=== PATIENT | male | born 1935 | race Caucasian/White ===

== ENCOUNTER 2016-11-15 08:56 | Day surgery (SDC) | payer MEDICARE, OTHER ==
[2016-11-09 09:53] LABS: ANION GAP 11 (5-19); BLOOD UREA NITROGEN 22 mg/dL (7-20); CALCIUM 8.7 mg/dL (8.4-10.2); CARBON DIOXIDE 25 mmol/L (22-30); CHLORIDE 106 mmol/L (98-107); CREATININE RESULT 1.93 mg/dL (0.52-1.25); GLUCOSE 106 mg/dL (75-110); POTASSIUM 4.9 mmol/L (3.6-5.0); SODIUM 141.6 mmol/L (137-145)
[2016-11-09 11:01] LABS: HEMATOCRIT 33.9 % (37.9-51.0); HEMOGLOBIN 11.5 g/dL (13.5-17.0); HGB HCT DIFFERENCE 0.6; MEAN CORPUSCULAR VOLUME 109 fl (80-97); RED BLOOD COUNT 3.12 10^6/uL (4.35-5.55); RED CELL DISTRIBUTION WIDTH 15.8 % (11.5-14.0); WHITE BLOOD COUNT 10.4 10^3/uL (4.0-10.5)
--- NOTE | 2016-11-09 13:11 | EKG REPORT ---
SEVERITY:- ABNORMAL ECG - SINUS RHYTHM FIRST DEGREE AV BLOCK LEFT BUNDLE BRANCH BLOCK : Confirmed by: Enmanuel Becerril MD 09-Nov-2016 13:11:35
[~2016-11-15 08:56] MED LIST: ACETAMINOPHEN 325 MG TABLET PO PRN; CEFAZOLIN SODIUM 1 GM in DEXTROSE 5%-WATER 50 ML IV PRN; NORMAL SALINE 1000 ML (RENAL PATIENTS) IV PRN; RINGERS SOLUTION,LACTATED 1,000 ML IV PRN
[2016-11-15] MEDS ORDERED: BUPIVACAINE HCL 0.25 % INJ/PF (2.5 MG/1 ML) 30 ML VIAL ONE (10:18)
[2016-11-15] MEDS ORDERED: FENTANYL CITRATE INJ/PF 100 MCG/2 ML AMPUL ONE (10:54)
[2016-11-15] MEDS ORDERED: MIDAZOLAM 2 MG/2 ML INJ ONE (10:54)
[2016-11-15] MEDS ORDERED: PROPOFOL INJ 200 MG/20 ML VIAL IV ONE (10:55)
[2016-11-15] MEDS ORDERED: PROMETHAZINE HCL INJ 25 MG/1 ML VIAL IV PRN ×4 (11:03→11:04)
[2016-11-15] MEDS ORDERED: OXYCODONE-ACETAMINOPHEN 5-325 MG TABLET PO PRN ×5 (11:03→14:30)
[2016-11-15] MEDS ORDERED: DIPHENHYDRAMINE HCL 50 MG/ML VIAL IV PRN ×2 (11:03→11:04)
[2016-11-15] MEDS ORDERED: MORPHINE SULFATE 10 MG/ML INJ IV PRN ×2 (11:03→11:04)
[2016-11-15] MEDS ORDERED: FENTANYL CITRATE INJ/PF 100 MCG/2 ML AMPUL IV PRN ×6 (11:03→11:04)
[2016-11-15] MEDS ORDERED: MEPERIDINE HCL/PF INJ 25 MG/1 ML DISP.SYRIN IV PRN ×2 (11:03→11:04)
[2016-11-15] MEDS ORDERED: GLYCOPYRROLATE INJ 0.4 MG/2 ML VIAL ONE (12:23)
[2016-11-15] MEDS ORDERED: LIDOCAINE 2% INJ-PF (20 MG/ML) 10 ML AMPUL ONE (12:23)
[2016-11-15] MEDS ORDERED: ONDANSETRON HCL INJ/PF 4 MG/2 ML SDV ONE (12:23)
--- NOTE | 2016-11-15 14:26 | Operative Report ---
Operative Report DATE OF SURGERY: 11/15/16 PREOPERATIVE DIAGNOSIS: Lymphoma, dysfunctional Port-A-Cath POSTOPERATIVE DIAGNOSIS: Lymphoma, dysfunctional Port-A-Cath OPERATION: Right subclavian single-lumen PowerPort placement (permanent implanted central venous access placed via fluoroscopic guidance). Removal of left subclavian Port-A-Cath SURGEON: DEBO WANG ANESTHESIA: LMAC TISSUE REMOVED OR ALTERED: Left subclavian Port-A-Cath COMPLICATIONS: None ESTIMATED BLOOD LOSS: normal INTRAOPERATIVE FINDINGS: Firm clot within the left subclavian Port-A-Cath catheter PROCEDURE: Informed consent was obtained. Patient was brought to the operating room placed on the operating table in the supine position. The procedure was done under LMAC. His chest and neck were prepped and draped in usual sterile fashion. Local anesthetic was injected. Incision was made at his scar just above the left subclavian Port-A-Cath. Dissection was carried down and the Port -A-Cath and the catheter was removed without difficulty. Examination of the catheter revealed a firm clot within the center. Instruments and the gown and gloves were changed. Local anesthetic was injected and the right subclavian vein was entered without difficulty and guidewire was placed into the central circulation under fluoroscopic guidance. A subcutaneous pocket was created in the patient's right upper chest. Single-lumen power port catheter was then tunneled between the 2 incisions. Introducer catheter was placed via the guidewire. The single-lumen power port catheter was then fed into the central circulation through the introducer catheter. The tip was positioned at the superior vena cava atrial junction. The catheter was then attached to the PowerPort device which was implanted into the subcutaneous pocket. The PowerPort leah blood and flushed easily. The right sided skin wounds were closed with the deep dermal interrupted Vicryl sutures followed by running subcuticular Monocryl suture. The left sided wound was examined. Hemostasis was achieved with electrocautery. This wound was closed with deep dermal interrupted Vicryl sutures followed by Steri-Strip closure. Patient tolerated procedure well with no apparent complications and was taken to the recovery area in stable condition. Stat portable chest x-ray was ordered in the recovery room.
[2016-11-15] MEDS ORDERED: RINGERS SOLUTION,LACTATED 1,000 ML IV PRN (14:30)
--- NOTE | 2016-11-15 14:30 | PDOC DISCHARGE SUMMARY ---
Discharge Summary (SDC) - Discharge Final Diagnosis: Lymphoma. Dysfunctional Port-A-Cath. Date of Surgery: 11/15/16 Discharge Date: 11/15/16 Condition: Good Treatment or Instructions: Removal of left subclavian Port-A-Cath. Placement of single-lumen right subclavian Port-A-Cath. May shower in 2 days. May use Port-A-Cath. Follow-up with me in 2 weeks. Stay active but avoid strenuous activity. Prescriptions: Oxycodone HCl/Acetaminophen [Percocet 5-325 mg Tablet] 1 tab PO ASDIR PRN #25 tablet PRN Reason: Discharge Diet: As Tolerated Discharge Activity: Activity As Tolerated - Stay active but avoid strenuous activity. Report the Following to Your Physician Immediately: Fever over 101 Degrees, Unusual Bleeding, Redness, Drainage-Foul Smelling
[2016-11-15 16:07] VITALS: BP 98/54
== END 2016-11-15 16:05 | disposition home or self-care (01) ==
LOC: OROUT 08:56
PROVIDERS: ATTEND Surgery
PROC: 05H533Z Insertion of Infusion Device into Right Subclavian Vein, Percutaneous Approach (ICD-10-PCS; 2016-11-15)
PROC: B516ZZA Fluoroscopy of Right Subclavian Vein, Guidance (ICD-10-PCS; 2016-11-15)
PROC: 05PY03Z Removal of Infusion Device from Upper Vein, Open Approach (ICD-10-PCS; principal; 2016-11-15 11:00)
DX: T82.868A Thrombosis due to vascular prosthetic devices, implants and grafts, initial encounter (principal); C85.90 Non-Hodgkin lymphoma, unspecified, unspecified site; C91.90 Lymphoid leukemia, unspecified not having achieved remission; I10 Essential (primary) hypertension; M19.90 Unspecified osteoarthritis, unspecified site; D11.9 Benign neoplasm of major salivary gland, unspecified; J44.9 Chronic obstructive pulmonary disease, unspecified; D60.8 Other acquired pure red cell aplasias; Z87.891 Personal history of nicotine dependence; Z88.8 Allergy status to other drugs, medicaments and biological substances; Z79.899 Other long term (current) drug therapy
CPT/HCPCS: 36590; 36561; 93005; 36415; 82962; 85027; 80048; 71020; 71010; 77001; 93010; C1788; J2250; J0690; J2405; J2704; J3490; J1642; 532; J3010

== ENCOUNTER → 2018-02-01 | Outpatient (CLI) | payer MEDICARE, OTHER ==
[~2018-02-01] MED LIST changes: -ACETAMINOPHEN 325 MG TABLET PO PRN; +AMINOPHYLLINE INJ/PF 250 MG/10 ML SDV IV ONE; -CEFAZOLIN SODIUM 1 GM in DEXTROSE 5%-WATER 50 ML IV PRN; -NORMAL SALINE 1000 ML (RENAL PATIENTS) IV PRN; +REGADENOSON INJ 0.4 MG/5 ML DISP.SYRIN IV ONE; -RINGERS SOLUTION,LACTATED 1,000 ML IV PRN
--- NOTE | 2018-02-01 12:19 | DRAGON STRESS TEST REPORT ---
INTRAVENOUS LEXISCAN CARDIOLITE STRESS TEST USING SINGLE PHOTON EMMISION COMPUTERIZED TOMOGRAPHIC. DATE OF PROCEDURE: February 01, 2018, INDICATION : Dyspnea CARDIAC RISK FACTORS: Diabetes, hypertension, left bundle branch block RESTING EKG: Sinus rhythm with left bundle branch block and secondary ST-T wave changes STRESS EKG: No significant ST segment changes noted with LexiScan bolus REASON FOR TERMINATION: Protocol. PROCEDURE REPORT: Baseline heart rate 67 beats per minute with blood pressure of 139/76. Patient had no significant complaints. Patient was bolused with Lexiscan 0.4 mg intravenously followed by saline bolus. Heart rate at 2 minutes post bolus 82 with a blood pressure of 139/79. 3 minutes post bolus heart rate 73 with blood pressure of 137/75. No significant EKG changes were noted. Patient had no significant complaints during the procedure or postprocedure. Patient injected with Aminophyllin 75 mg at 3 minutes or later after Lexiscan bolus. CONCLUSIONS: Normal EKG and hemodynamic response to IV LexiScan. NUCLEAR DATA: At rest the patient was given 14.74 millicuries of technetium 99 sestamibi injected intravenously. As per protocol rest gated SPECT images were obtained. On day of stress test, the patient was given intravenous LexiScan at a dose of 0.4 mg in 5 mL intravenously, followed by flush with normal saline. Subsequently the stress dose of 45.5 millicuries of technetium 99 sestamibi was injected intravenously. As per protocol stress gated images were obtained. NUCLEAR INTERPRETATION: Both raw and processed data were used for interpretation. Visual, qualitative, computer-generated quantitative data was used. There was good myocardial uptake of technetium compound. Motion artifact and soft tissue attenuations were noted. Increased visceral uptake was noted. No definitive areas of transient perfusion defect noted. Septal, apical and distal anterior wall mild fixed defect noted, part of which can be explained by left bundle branch block pattern but cannot rule out an area of prior myocardial infarction. EKG gated imaging showed LV EF at 49 %, rest and stress gated EF similar visually. T. I D. ratio was 1.05. Lung heart ratio noted to be within normal limits 0.32. No significant extracardiac and abnormal radiotracer activities were noted. RV free wall uptake was noted to be WNL. IMPRESSION: Also refer to comments under nuclear interpretation. Also test results needs to be interpreted in the context of pretest probability. 1. No definitive areas of transient perfusion defect noted. 2. Septal, apical and distal anterior wall mild fixed defect noted, indicative of an area of prior myocardial infarction, but could be partly explained by left bundle branch block pattern. 3. EKG gated imaging shows left ventricular ejection fraction of approx. 49 %, mild septal and distal anterior wall and apical hypokinesia suspected. 4. Clinical correlation requested as occasionally single vessel disease or balanced ischemia could be missed. In approximately 10% of the cases Lexiscan may not cause adequate vasodilatory stress. RECOMMENDATIONS: Aggressive risk factor modification and medical management. Further evaluation may be needed if continued symptoms or other high risk indicators are noted on clinical evaluation. Clinical correlation with echocardiogram derived ejection fraction. Inability to exercise by itself can lead to increased cardiovascular event risks. Consider cardiology consultation and or follow-up if clinically indicated. I am available for cardiology evaluation and consultation if requested by the benzene washer operator, unless patient already has a pig caster. MAIA
--- NOTE | 2018-02-01 12:54 | XCELERA REPORT ---
[address] [address] Transthoracic Echocardiogram Report Name: RAIN JAVIER Age: 82 yrs Gender: Male : 1935 Patient Status: Outpatient Patient Location: RAD Study Date: 02/01/2018 08:07 AM Height: 72 in Weight: 218 lb BSA: 2.2 m2 Procedure: A complete two-dimensional transthoracic echocardiogram was performed (2D, M-mode, spectral and color flow Doppler). The study was technically adequate with some images being suboptimal in quality. Reason For Study: DYSPNEA Ordering Physician: DB LEDESMA Performed By: Rashel Cunha Interpretation Summary LV EF is 45% Left ventricular systolic function is mildly reduced. There is mild concentric left ventricular hypertrophy. The left ventricle is grossly normal size. Doppler measurements suggest pseudonormalized left ventricular relaxation, which is associated with grade II/IV or mild to moderate diastolic dysfunction Septal motion is consistent with conduction abnormality The right ventricular systolic function is normal. The left atrium is mildly dilated. The right atrium is normal in size There is a trace to mild amount of mitral regurgitation There is no mitral valve stenosis. There is no aortic valve stenosis No aortic regurgitation is present. There is a trace or physiologic amount of tricuspid regurgitation Tricuspid regurgitation jet envelope not well defined to measure RV systolic pressure accurately. There is no pericardial effusion. MMode/2D Measurements & Calculations RVDd: 2.6 cm LVIDd: 5.1 cm FS: 21.1 % Ao root diam: 4.0 cm IVSd: 1.2 cm LVIDs: 4.0 cm EDV(Teich): 122.4 ml LVPWd: 1.1 cm ESV(Teich): 70.1 ml Ao root area: 12.6 cm2 EF(Teich): 42.7 % Doppler Measurements & Calculations MV E max romie: MV dec slope: Ao V2 max: LV V1 max P.9 cm/sec 132.1 cm/sec 4.0 mmHg MV A max romie: 219.0 cm/sec2 Ao max PG: LV V1 max: 84.2 cm/sec MV dec time: 7.0 mmHg 100.6 cm/sec MV E/A: 0.78 0.30 sec PA V2 max: TR max romie: 124.9 cm/sec 257.6 cm/sec PA max PG: TR max P.5 mmHg 6.2 mmHg Left Ventricle The left ventricle is grossly normal size. There is mild concentric left ventricular hypertrophy. Left ventricular systolic function is mildly reduced. LV EF is 45%. Doppler measurements suggest pseudonormalized left ventricular relaxation, which is associated with grade II/IV or mild to moderate diastolic dysfunction. Septal motion is consistent with conduction abnormality. Right Ventricle The right ventricle is grossly normal size. There is normal right ventricular wall thickness. The right ventricular systolic function is normal. Atria The right atrium is normal in size. The left atrium is mildly dilated. Interarterial septum not well visualized and not well dopplered. Cannot comment on ASD/PFO presence. Mitral Valve The mitral valve is grossly normal. There is no mitral valve stenosis. There is a trace to mild amount of mitral regurgitation. Aortic Valve The aortic valve is not well visualized secondary to technical limitations. There is no aortic valve stenosis. No aortic regurgitation is present. Tricuspid Valve The tricuspid valve is not well visualized secondary to technical limitations. There is no tricuspid stenosis. There is a trace or physiologic amount of tricuspid regurgitation. Tricuspid regurgitation jet envelope not well defined to measure RV systolic pressure accurately. Pulmonic Valve The pulmonic valve is not well visualized. Great Vessels The aortic root is not well visualized but is probably normal size. The inferior vena cava was not well visualized. Effusions There is no pericardial effusion. : DB LEDESMA > Kelsy Agrawal
== END ==
LOC: RAD 06:31
PROVIDERS: ATTEND Internal Medicine Geriatric Medicine
DX: R06.09 Other forms of dyspnea (principal)
CPT/HCPCS: 93306; 93017; 78452; A9500; J2785; J0280; Q9969

== ENCOUNTER → 2018-05-02 | Outpatient (CLI) | payer MEDICARE, OTHER ==
[~2018-05-02] MED LIST changes: +ALBUTEROL SULFATE 0.083% NEB 2.5 MG/3 ML AMPUL NEB ONE; -AMINOPHYLLINE INJ/PF 250 MG/10 ML SDV IV ONE; -REGADENOSON INJ 0.4 MG/5 ML DISP.SYRIN IV ONE
--- NOTE | 2018-05-03 14:12 | Pulmonary Function Test ---
Pulmonary Function Test Date of Procedure:: 05/03/18 INDICATION:: Shortness of breath Referring Provider: Dr. Dillon Baggage Inspector: Lauren Acevedo ACCOUNT MANAGER TRAINEE - Report Spirometry: FVC to 3.86 L 80% postbronchodilator 4.08 L 84% FEV1 2.15 L 58% postbronchodilator 2.30 L 62% FEV1/FVC % 56 postbronchodilator 56 predicted 75 FEF 25-75% 0.69 20% postbronchodilator 0.70 20% Diffusion Capactity: DLCO 30.2 138% DLCO/VA 3.18 97% Impression: Moderate obstructive ventilatory defect with insignificant response to bronchodilator therapy this in and of itself does not preclude clinical trial of bronchodilator therapy. Normal diffusion capacity.
== END ==
LOC: RT 08:19
PROVIDERS: ATTEND Internal Medicine Medical Oncology
DX: C91.10 Chronic lymphocytic leukemia of B-cell type not having achieved remission (principal); R06.02 Shortness of breath
CPT/HCPCS: 94729; 94060; A9270

== ENCOUNTER → 2019-03-06 | Outpatient (CLI) | payer MEDICARE, OTHER ==
--- NOTE | 2019-03-06 14:10 | RADIOLOGY REPORT (SQ) ---
EXAM DESCRIPTION: BARIUM SWALLOW ESOPHAGUS COMPLETED DATE/TIME: 03/06/2019 9:27 am REASON FOR STUDY: DYSPHAGIA (R13.10) R13.10 DYSPHAGIA, UNSPECIFIED COMPARISON: None. TECHNIQUE: Under fluoroscopic guidance, patient ingested effervescent granules followed by thick and thin barium. Fluoroscopic spot images and routine radiographic images acquired and stored on PACS. 12 MM BARIUM TABLET GIVEN: Yes. No significant delay in passage. LIMITATIONS: None. FLUOROSCOPY TIME: FLUORO TIME: 2.8 minutes 6 series of digital fluoroscopic images saved to PACS. FINDINGS: NEUROMUSCULAR COORDINATION OF SWALLOW: Normal. No aspiration. ESOPHAGEAL MOTILITY: Occasional tertiary contractions of the esophagus, otherwise normal motility. ESOPHAGEAL MUCOSA: Normal mucosa without masses or ulceration. GASTRO-ESOPHAGEAL JUNCTION: Tiny sliding hiatal hernia without Schatzki's ring or distal esophageal s tricture. 12 mm barium tablet passed through to the stomach without difficulty. Mild gastroesophage al reflux is present NON-GI TRACT STRUCTURES: Right-sided permanent central line tip superior vena cava OTHER: No other significant finding. IMPRESSION: Tiny hiatal hernia were mild gastroesophageal reflux COMMENT: Quality ID [id number]: Final reports for procedures using fluoroscopy that document radiation exp osure indices, or exposure time and number of fluorographic images (if radiation exposure indices are not available) TECHNICAL DOCUMENTATION: JOB ID: [id number] [employer]- All Rights Reserved Reading location - IP/workstation name: [email or web address]
== END ==
LOC: RAD 08:30
PROVIDERS: ATTEND Internal Medicine Geriatric Medicine
DX: K21.9 Gastro-esophageal reflux disease without esophagitis (principal); K44.9 Diaphragmatic hernia without obstruction or gangrene; R13.10 Dysphagia, unspecified
CPT/HCPCS: 74220